=== PATIENT | female | born 1990 | race Caucasian/White ===

== ENCOUNTER 2016-06-18 19:37 | Emergency (ER) | payer OTHER ==
[~2016-06-18] VITALS: Ht 172.7 cm; Wt 116.0 kg
[~2016-06-18 19:37] MED LIST: BENTYL10 MG PO; CHLORDIAZEPOXI1 EACH PO; DICYCLOMINE HCL10 MG PO; DILAUDID2 MG PO; ELAVIL25 MG PO; ERGOCALCIF50000 UNIT PO; FLEXERIL10 MG PO; KEFLEX500 MG PO; LEVO-T25 MCG PO; LEVOTHYROXINE25 MCG PO; METFORMIN HCL500 M1 PO; MOTION SICKNESS25 M1 PO; NAPROSYN500 MG PO; NORCO 5/3251 TABLET PO; OMEPRAZOLE20 MG PO; ORTHO TRI-CYCL1 EACH PO; PERCOCET 5/31 TABLET PO; PRILOSEC40 MG PO; PROBIOTIC1 EAC1 PO; VICODIN,LORT1 TABLET PO; ZOFRAN ODT4 MG PO; ZOFRAN4 MG PO
[2016-06-18 20:17] LABS: HEMATOCRIT 42.8 % (36.0-46.0); MCH 30.1 PG (29.0-34.0); MCHC 33.6 G/DL (30.0-36.0); MCV 89.4 FL (83-99); MEAN PLAT.VOLUME 9.5 uM^3 (9.5-12.4); PLATELET COUNT 323 K/uL (156-360); RBC DIS.WIDTH-CV 11.9 % (11.8-14.6); RBC DIS.WIDTH-SD 38.9 % (39-53); RED BLOOD COUNT 4.79 M/uL (3.80-5.20); WHITE BLOOD COUNT 10.7 K/uL (4.1-10.2)
[2016-06-18 20:31] LABS: CHLORIDE 107 mEq/L (99-109); POTASSIUM 4.1 mEq/L (3.7-5.4); SODIUM 137 mEq/L (136-147)
[2016-06-18 20:33] LABS: GLUCOSE 121 mg/dL (70-99)
[2016-06-18 20:34] LABS: ANION GAP 8 MEQ/L (2-14)
[2016-06-18 20:35] LABS: TOTAL BILIRUBIN 0.4 mg/dL (0.0-1.0)
[2016-06-18 20:37] LABS: ALKALINE PHOSPHATASE 61 IU/L (3-129); GFR ESTIMATE (CALCULATED) > 59 mL/min/
[2016-06-18 20:38] LABS: UREA NITROGEN (BUN) 14 mg/dL (9-23)
[2016-06-18 20:46] LABS: QUANTITATIVE HCG < 4.0 MIU/ML
[2016-06-18 22:16] LABS: LIPASE 20 U/L (1.0-51.0)
[2016-06-18 22:47] LABS: ADD MIUA? YES; BILIRUBIN NEGATIVE; BLOOD NEGATIVE; COLOR YELLOW ((YELLOW)); GLUCOSE (STRIP) NEGATIVE; KETONES NEGATIVE; LEUKOCYTES SMALL; NITRITE NEGATIVE; PROTEIN (STRIP) NEGATIVE; SPECIFIC GRAVITY 1.026 (1.000-1.030); UROBILINOGEN 0.2 MG/DL (0.2-1.0)
[2016-06-18 23:09] LABS: BACTERIA NONE SEEN /HPF; EPITHELIAL CELLS 1+ /HPF; MUCUS 1+ /LPF; UCUL ADDED? NO; WHITE BLOOD CELLS 0-5 /HPF (0-5)
[2016-06-19] MEDS ORDERED: ZOFRAN ODT4 MG PO (00:56)
[2016-06-19 01:07] VITALS: BP 117/66
== END 2016-06-19 01:09 | disposition home or self-care (01) ==
LOC: EME 19:37
DX: R11.2 Nausea with vomiting, unspecified (principal); R19.7 Diarrhea, unspecified; F17.200 Nicotine dependence, unspecified, uncomplicated; Z91.040 Latex allergy status; Z88.6 Allergy status to analgesic agent
CPT/HCPCS: 80053; 81003; 83690; 84702; 85027; 99281; 99284

== ENCOUNTER 2016-11-21 08:01 | Day surgery (SDC) | payer OTHER ==
[~2016-11-21] VITALS: Ht 172.7 cm; Wt 117.9 kg
[~2016-11-21 08:01] MED LIST changes: +POLY-VITAMIN1 EACH PO
[2016-11-21 08:56] VITALS: BP 129/69
[2016-11-21 11:42] LABS: POINT-OF-CARE METER ID UU13113675; POINT-OF-CARE USER ID 515036437
[2016-11-21 12:46] VITALS: BP 116/67
[2016-11-21 13:35] VITALS: BP 130/69
== END 2016-11-21 13:52 | disposition home or self-care (01) ==
LOC: SDC 08:01
PROVIDERS: Obstetrics & Gynecology Gynecology
DX: N93.8 Other specified abnormal uterine and vaginal bleeding (principal); N94.6 Dysmenorrhea, unspecified; N92.0 Excessive and frequent menstruation with regular cycle; N85.4 Malposition of uterus; R18.8 Other ascites; E28.2 Polycystic ovarian syndrome; L68.0 Hirsutism; E88.81 Metabolic syndrome and other insulin resistance; E66.01 Morbid (severe) obesity due to excess calories; R10.2 Pelvic and perineal pain; Z80.49 Family history of malignant neoplasm of other genital organs; Z80.41 Family history of malignant neoplasm of ovary; E55.9 Vitamin D deficiency, unspecified; G43.909 Migraine, unspecified, not intractable, without status migrainosus; K58.0 Irritable bowel syndrome with diarrhea; F17.200 Nicotine dependence, unspecified, uncomplicated; Z82.49 Family history of ischemic heart disease and other diseases of the circulatory system; Z83.49 Family history of other endocrine, nutritional and metabolic diseases; Z82.3 Family history of stroke; Z83.3 Family history of diabetes mellitus
CPT/HCPCS: 82948; 88305; J0330; J1100; J1885; J2250; J2405; J2710; J2765; J3010

== ENCOUNTER 2017-05-22 12:40 | Emergency (ER) | payer OTHER ==
[~2017-05-22] VITALS: Ht 172.7 cm; Wt 126.5 kg
[2017-05-22] MEDS ORDERED: ZOFRAN4 MG SL (15:18)
[2017-05-22 15:49] VITALS: BP 130/88
== END 2017-05-22 15:50 | disposition home or self-care (01) ==
LOC: EME 12:40
PROVIDERS: Physician Assistant
DX: S09.90XA Unspecified injury of head, initial encounter (principal); J02.9 Acute pharyngitis, unspecified; W22.09XA Striking against other stationary object, initial encounter; F17.200 Nicotine dependence, unspecified, uncomplicated; Z79.84 Long term (current) use of oral hypoglycemic drugs; Z88.5 Allergy status to narcotic agent; Z91.040 Latex allergy status; Z88.6 Allergy status to analgesic agent
CPT/HCPCS: 70450; 87502; 87651 90; 99281; 99284

== ENCOUNTER 2017-05-24 23:00 | Emergency (ER) | payer OTHER ==
[~2017-05-24] VITALS: Ht 172.7 cm; Wt 127.3 kg
[~2017-05-24 23:00] MED LIST changes: +ZOFRAN4 MG SL
[2017-05-25 02:17] VITALS: BP 145/90
== END 2017-05-25 02:18 | disposition home or self-care (01) ==
LOC: EME 23:00
DX: S06.0X0A Concussion without loss of consciousness, initial encounter (principal); W22.8XXA Striking against or struck by other objects, initial encounter; R19.7 Diarrhea, unspecified; Z90.49 Acquired absence of other specified parts of digestive tract; Z79.84 Long term (current) use of oral hypoglycemic drugs; F17.200 Nicotine dependence, unspecified, uncomplicated
CPT/HCPCS: 99281; 99285; J0780; J1200; J1885; J7030